=== PATIENT | female | born 1940 | race Asian ===

== ENCOUNTER 2017-07-28 08:52 | Emergency (ER) | payer MEDICARE ==
[~2017-07-28] VITALS: Ht 144.8 cm; Wt 50.0 kg
[2017-07-28 08:53] VITALS: BP 157/71; PULSE 70; RESP 14; TEMP 97.9; O2SAT 99
[2017-07-28] MEDS ORDERED: PRAV20TA2 PO (09:06)
[2017-07-28] MEDS ORDERED: FLUT1SPR16 (09:06)
[2017-07-28] MEDS ORDERED: ANAS1TAB PO (09:06)
[2017-07-28] MEDS ORDERED: TRAV0.00 EACH EYE (09:06)
--- NOTE | 2017-07-28 09:33 | PD ---
HPI Chief Complaint: Back/ Neck Pain or Injury Time Seen by Provider: 09:20 Travel History International Travel<30 days: No Contact w/Intl Traveler<30days: No Traveled to known affect area: No History of Present Illness HPI 77-year-old female presents for evaluation after mechanical fall. She reports that 2 days ago she slipped on wet floor and fell, landing on her lower back and right hip. She's been having mild pain in her lower back and right hip since then. The pain is an aching pain that is worse with movement. She denies any range of motion limitations or difficulty with ambulation. She denies any bowel or bladder incontinence, saddle anesthesia, numbness or tingling or weakness. She has no other complaints at this time. [facility] Past Medical History High Cholesterol: Yes Tetanus Vaccination: Unknown ?: Not Past Surgical History Surgical History: No Previous Surgery Social History Alcohol Use: No Tobacco Use: No Substance Use: No Allergies-Medications (Allergen,Severity, Reaction): Coded Allergies: aspirin (Verified Adverse Reaction, Severe, Nausea/Vomiting, 07/28/17) Reported Meds & Prescriptions Reported Meds & Active Scripts Active Tramadol (Tramadol HCl) 50 Mg Tab 50 Mg PO Q6H PRN Naproxen 500 Mg Tab 500 Mg PO BID 7 Days Reported Sm Allergy Relief Nasal S (Fluticasone Propionate (Nasal)) 50 Mcg/Actuation Spr Travatan Z Opth Drops (Travoprost) 0.004 % Soln 1 Drop EACH EYE HS Pravastatin 20 Mg Tab 20 Mg PO DAILY Anastrozole 1 Mg Tab 1 Mg PO DAILY Review of Systems Except as stated in HPI: all other systems reviewed are Neg Physical Exam Narrative GENERAL: Well-developed well-nourished female in no acute distress ambulatory in the ED with no apparent gait disturbance. SKIN: Warm and dry. HEAD: Atraumatic. Normocephalic. EYES: Pupils equal and round. No scleral icterus. No injection or drainage. ENT: No nasal bleeding or discharge. Mucous membranes pink and moist. NECK: Trachea midline. No JVD. CARDIOVASCULAR: Regular rate and rhythm. No murmur appreciated. RESPIRATORY: No accessory muscle use. Clear to auscultation. Breath sounds equal bilaterally. GASTROINTESTINAL: Abdomen soft, non-tender, nondistended. Hepatic and splenic margins not palpable. MUSCULOSKELETAL: No obvious deformities. The patient has mild tenderness to palpation to the right buttocks. She has no reproducible tenderness to palpation along the lumbar spine. She maintains full range of motion of the lower extremities with full muscle strength in all major muscle groups. NEUROLOGICAL: Awake and alert. No obvious cranial nerve deficits. Motor grossly within normal limits. Normal speech. Data Data Last Documented VS Vital Signs Date Time Temp Pulse Resp B/P (MAP) Pulse Ox O2 Delivery O2 Flow Rate FiO2 07/28/17 08:53 97.9 70 14 157/71 (99) 99 Orders Orders Spine, Lumbar - Ltd (Ap & Lat) (07/28/17 ) Hip, Uni(Ap&Lat) W Ap Pelvis (07/28/17 ) Splint Or Brace Apply/Monitor (07/28/17 10:29) Ed Discharge Order (07/28/17 10:34) [facility] Medical Decision Making Medical Screen Exam Complete: Yes Emergency Medical Condition: Yes Medical Record Reviewed: Yes Differential Diagnosis Compression fracture, lumbar strain, contusion, hip fracture, trochanteric bursitis Narrative Course Physical examination is reassuring. X-ray of the right hip/pelvis and lumbar spine have been ordered. Lumbar spine x-ray reveals CONCLUSION: 1. Mild height loss in the superior endplate of L1 of uncertain chronicity. This could represent an endplate compression fracture. MRI could further characterize, if needed clinically. 2. Mild levoscoliosis with multilevel degenerative change, as above. On examination she does have mild point tenderness over the L1 vertebrae and therefore this will be assumed to be a acute mild compression fracture. The patient has no neurologic deficits that would suggest spinal cord compromise. Her pain appears quite tolerable. She does not need further emergent imaging, MRI lumbar spine can be achieved as an outpatient. She will be discharged with an LSO brace as well as tramadol and naproxen. She is be given a referral for outpatient neurosurgery follow-up. Diagnosis Primary Impression: Compression fracture of L1 lumbar vertebra Qualified Codes: S32.010A - Wedge compression fracture of first lumbar vertebra, initial encounter for closed fracture Referrals: Israel Griffith MD Additional Instructions: Pain medication as needed. Take naproxen with meals. Tramadol for breakthrough pain. Do not drive or drink alcohol when taking this medication. Follow-up with Dr. Griffith in one week, call his office to make an appointment. Return for any emergent medical conditions. Med/Other Pt SpecificInfo: Prescription(s) given Scripts Tramadol (Tramadol) 50 Mg Tab 50 MG PO Q6H Y for PAIN, #20 TAB 0 Refills Prov: Binta Shepherd DO 07/28/17 Naproxen (Naproxen) 500 Mg Tab 500 MG PO BID for 7 Days, #14 TAB 0 Refills Prov: Binta Shepherd DO 07/28/17 Disposition: 01 DISCHARGE HOME Condition: Stable Austin Maher Jul 28, 2017 09:33
--- NOTE | 2017-07-28 10:15 | RADRPT ---
EXAM DATE/TIME: 07/28/2017 09:37 [facility] COMPARISON: No previous studies available for comparison. INDICATIONS : Right hip pain; fall 4 days ago. MEDICAL HISTORY : None. SURGICAL HISTORY : None. ENCOUNTER: Initial ACUITY: 1 day PAIN SCORE: 6/10 LOCATION: Right hip. FINDINGS: AP view of the pelvis and 2 views of the right hip joint demonstrate no fracture or dislocation. Mine ralization is normal. There are minimal osteophytes at the femoral head. No significant joint space n arrowing is present. No soft tissue abnormality or radiopaque foreign body is identified. CONCLUSION: No acute right hip abnormality is identified. Dio Conley MD on July 28, 2017 at 10:12 Board Certified Radiologist. This report was verified electronically.
--- NOTE | 2017-07-28 10:17 | RADRPT ---
EXAM DATE/TIME: 07/28/2017 09:39 [facility] COMPARISON: No previous studies available for comparison. INDICATIONS : Low back pain; fell 4 days ago. MEDICAL HISTORY : None. SURGICAL HISTORY : None. ENCOUNTER: Initial ACUITY: 4 - 6 days PAIN SCORE: 6/10 LOCATION: Lumbar spine. FINDINGS: 5 views of the lumbar spine demonstrate 5 nonrib-bearing lumbar vertebral bodies with sacralization o f L5. There is mild leftward convex curvature. There is mild height loss of the superior endplate of L1. There is 3 mm of anterolisthesis of L3 on L4. Facet hypertrophy is present L3-L4 through L5-S1. D ecreased disc height is present at L4-L5. CONCLUSION: 1. Mild height loss in the superior endplate of L1 of uncertain chronicity. This could represent an e ndplate compression fracture. MRI could further characterize, if needed clinically. 2. Mild levoscoliosis with multilevel degenerative change, as above. Dio Conley MD on July 28, 2017 at 10:13 Board Certified Radiologist. This report was verified electronically.
[2017-07-28] MEDS ORDERED: TRAM50TA PO (10:24)
[2017-07-28] MEDS ORDERED: NAPR500T2 PO (10:24)
== END 2017-07-28 11:02 | disposition home or self-care (01) ==
LOC: NEPD 08:52
DX: S32.010A Wedge compression fracture of first lumbar vertebra, initial encounter for closed fracture (principal); M25.551 Pain in right hip; W01.0XXA Fall on same level from slipping, tripping and stumbling without subsequent striking against object, initial encounter
CPT/HCPCS: 72100; 73502; 99284; L0484

== ENCOUNTER 2017-07-30 12:47 | Emergency (ER) | payer MEDICARE ==
[~2017-07-30] VITALS: Ht 144.8 cm; Wt 49.0 kg
[~2017-07-30 12:47] MED LIST: ANAS1TAB PO; FLUT1SPR16; NAPR500T2 PO; PRAV20TA2 PO; TRAM50TA PO; TRAV0.00 EACH EYE
[2017-07-30 12:49] VITALS: BP 177/81; PULSE 70; RESP 14; TEMP 98.4; O2SAT 97
--- NOTE | 2017-07-30 12:59 | PD ---
HPI Chief Complaint: Medication Refill Request Time Seen by Provider: 12:56 Travel History International Travel<30 days: No Contact w/Intl Traveler<30days: No Traveled to known affect area: No History of Present Illness HPI 77-year-old female presents the emergency department status post slip and fall 4 days ago with subsequent L1 compression fracture. Patient was seen on 28 July 2017, given tramadol and Naprosyn for pain. Patient is complaining of nausea from the Naprosyn. She is currently scheduled to follow with orthopedist. Pain is currently PFSH Past Medical History High Cholesterol: Yes Social History Alcohol Use: No Tobacco Use: No Substance Use: No Allergies-Medications (Allergen,Severity, Reaction): Coded Allergies: aspirin (Verified Adverse Reaction, Severe, Nausea/Vomiting, 07/30/17) Reported Meds & Prescriptions Reported Meds & Active Scripts Active Meloxicam 7.5 Mg Tab 7.5 Mg PO BID 30 Days Calcitonin ([place]) Nasal Evans (Calcitonin [place]) 200 Units/Act Soln 1 Evans NASAL DAILY Alternate nostrils daily. Tramadol (Tramadol HCl) 50 Mg Tab 50 Mg PO Q6H PRN Reported Sm Allergy Relief Nasal S (Fluticasone Propionate (Nasal)) 50 Mcg/Actuation Spr Travatan Z Opth Drops (Travoprost) 0.004 % Soln 1 Drop EACH EYE HS Pravastatin 20 Mg Tab 20 Mg PO DAILY Anastrozole 1 Mg Tab 1 Mg PO DAILY Review of Systems Except as stated in HPI: all other systems reviewed are Neg General / Constitutional: No: Fever Eyes: No: Visual changes HENT: No: Headaches Cardiovascular: No: Chest Pain or Discomfort Respiratory: No: Shortness of Breath Gastrointestinal: Positive: Nausea, No: Vomiting, Diarrhea, Abdominal Pain Genitourinary: No: Dysuria Musculoskeletal: Positive: Arthralgias, Limited ROM, Pain (see history of present illness) Skin: No Rash Neurologic: No: Weakness Psychiatric: No: Depression Endocrine: No: Polydipsia Hematologic/Lymphatic: No: Easy Bruising Physical Exam Narrative GENERAL: Patient appears in mild to moderate distress. SKIN: Warm and dry. Normal color. Normal turgor. HEAD: Atraumatic. Normocephalic. EYES: Pupils equal and round. No scleral icterus. No injection or drainage. ENT: No nasal bleeding or discharge. Mucous membranes pink and moist. NECK: Trachea midline. No JVD. CARDIOVASCULAR: Regular rate and rhythm. RESPIRATORY: No accessory muscle use. Clear to auscultation. Breath sounds equal bilaterally. GASTROINTESTINAL: Abdomen soft, non-tender, nondistended. Hepatic and splenic margins not palpable. MUSCULOSKELETAL: Extremities without clubbing, cyanosis, or edema. No obvious deformities. Patient continues to have tenderness along the L1 level of the lumbar spine. NEUROLOGICAL: Awake and alert. No obvious cranial nerve deficits. Motor grossly within normal limits. Five out of 5 muscle strength in the arms and legs. Normal speech. PSYCHIATRIC: Appropriate mood and affect; insight and judgment normal. Data Data Last Documented VS Vital Signs Date Time Temp Pulse Resp B/P (MAP) Pulse Ox O2 Delivery O2 Flow Rate FiO2 07/30/17 12:49 98.4 70 14 177/81 (113) 97 MDM Medical Decision Making Medical Screen Exam Complete: Yes Emergency Medical Condition: Yes Medical Record Reviewed: Yes Differential Diagnosis Nausea. Medication reaction. Compression fracture. Narrative Course Patient is to stop Naprosyn. Patient is given Miacalcin nasal spray, to be used 1 spray alternating nostrils daily for one month. Patient also given meloxicam 7.5 mg twice a day with food #60. Patient can take tramadol as well as needed for pain. Patient to continue with her brace, and follow-up with her primary care physician in [place] in the next several days. Patient can return to emergency department as needed. Diagnosis Primary Impression: Compression fracture of L1 lumbar vertebra Qualified Codes: S32.010D - Wedge compression fracture of first lumbar vertebra, subsequent encounter for fracture with routine healing Additional Impression: Medication reaction Qualified Codes: T88.7XXA - Unspecified adverse effect of drug or medicament, initial encounter Referrals: Primary Care Physician Patient Instructions: General Instructions, Vertebral Compression Fracture (ED) Additional Instructions: Patient is to stop Naprosyn. Patient is given Miacalcin nasal spray, to be used 1 spray alternating nostrils daily for one month. Patient also given meloxicam 7.5 mg twice a day with food #60. Patient can take tramadol as well as needed for pain. Patient to continue with her brace, and follow-up with her primary care physician in [place] in the next several days. Patient can return to emergency department as needed. Scripts Meloxicam (Meloxicam) 7.5 Mg Tab 7.5 MG PO BID for Pain Management for 30 Days, #60 TAB 0 Refills Prov: Christos Story MD 07/30/17 Calcitonin ([place]) Nasal Evans (Calcitonin ([place]) Nasal Evans) 200 Units/Act Soln 1 SPRAY NASAL DAILY for Pain Management, #3.7 ML 0 Refills Alternate nostrils daily. Prov: Christos Story MD 07/30/17 Disposition: 01 DISCHARGE HOME Condition: Stable Dyllan Ruggiero Jul 30, 2017 12:59
[2017-07-30] MEDS ORDERED: MELO7.5T27 PO (13:02)
[2017-07-30] MEDS ORDERED: CALC200S NASAL (13:02)
== END 2017-07-30 13:22 | disposition home or self-care (01) ==
LOC: NEPK 12:47
DX: T39.315A Adverse effect of propionic acid derivatives, initial encounter (principal); S32.010D Wedge compression fracture of first lumbar vertebra, subsequent encounter for fracture with routine healing; R11.0 Nausea; E78.00 Pure hypercholesterolemia, unspecified; W19.XXXD Unspecified fall, subsequent encounter; Z79.899 Other long term (current) drug therapy
CPT/HCPCS: 99284